=== PATIENT | male | born 1965 | race Caucasian/White ===

== ENCOUNTER 2022-07-21 10:54 | Inpatient (IN) | payer SELFPAY ==
[2022-07-21 12:03] LABS: Hemoglobin 15.3 g/dL (14.0-18.0); Mean Corpuscular Hemoglobin 30.9 pg (27.0-31.0); Mean Corpuscular Volume 93.4 fL (78.0-98.0); Mean Platelet Volume 6.9 fL (7.4-10.4); Platelet Count 272 thou/uL (130-400); RBC Distribution Width 14.3 % (11.5-14.5); Red Blood Cell (RBC) Count 4.96 mill/uL (4.70-6.10); White Blood Cell (WBC) Count 14.6 thou/uL (4.8-10.8)
[2022-07-21 12:20] LABS: Band 11 % (5-11); Lymphocytes 1 % (21-51); MDiff Complete? YES; Monocytes 5 % (0-10); Neutrophil 83 % (42-75); Platelet Morphology Comment Appears Adequate; RBC Morphology Normal
[2022-07-21 12:25] LABS: ALT (SGPT) 17 U/L (8-55); AST (SGOT) 19 U/L (5-34); Albumin 3.9 g/dL (3.5-5.0); Alkaline Phosphatase 121 U/L (40-110); Anion Gap 15 mmol/L (10-20); BUN (Urea Nitrogen) 43 mg/dL (8.4-25.7); Bilirubin, Total 0.7 mg/dL (0.2-1.2); CK (CPK) 66 U/L (30-200); Calc. Creatinine Clearance 0 mL/min (70-130); Calcium 8.9 mg/dL (7.8-10.44); Carbon Dioxide 21 mmol/L (22-29); Chloride 90 mmol/L (98-107); Estimated GFR 27; Globulin 3.9 g/dL (2.4-3.5); Glucose 137 mg/dL (70-105); Lipase 4 U/L (8-78); Magnesium 2.4 mg/dL (1.6-2.6); Potassium 3.1 mmol/L (3.5-5.1); Protein, Total 7.8 g/dL (6.0-8.3); Sodium 123 mmol/L (136-145)
[2022-07-21] MEDS ORDERED: Piperacillin/Tazobactam 4.5 GM VIAL ONE ×2 (14:43→14:56)
[2022-07-21] MEDS ORDERED: Potassium Chloride 20 MEQ/100 ML PREMIX BAG ONE (14:56)
[2022-07-21 16:15] LABS: SARS-CoV-2 NAA Rapid Test Not Detected (NotDetected)
[2022-07-21] MEDS ORDERED: Midazolam HCl 2 mg/2 ml Vial ONE (16:33)
[2022-07-21] MEDS ORDERED: fentaNYL Citrate/PF 100 MCG/2 ML SYRINGE ONE ×2 (16:33→19:44)
[2022-07-21] MEDS ORDERED: Phenylephrine 10 MG/ML VIAL ONE (16:59)
[2022-07-21] MEDS ORDERED: Ondansetron PF 4 MG/2 ML Vial ONE (16:59)
[2022-07-21] MEDS ORDERED: Lidocaine 1% MPF 2 ML VIAL ONE (16:59)
[2022-07-21] MEDS ORDERED: Vecuronium 10 MG VIAL ONE (16:59)
[2022-07-21] MEDS ORDERED: PROPOFOL 200 MG/20 ML VIAL ONE (16:59)
[2022-07-21] MEDS ORDERED: Rocuronium Bromide 10 MG/ML (10ML VIAL) ONE (16:59)
[2022-07-21] MEDS ORDERED: Succinylcholine 200 MG/10 ml SYRINGE FS ONE (16:59)
[2022-07-21] MEDS ORDERED: Bupivacaine/Epinephrine 0.25% 30 ML VIAL ONE (17:17)
[2022-07-21] MEDS ORDERED: SUGAMMADEX SODIUM 200 MG/2 ML VIAL ONE (18:41)
[2022-07-21] MEDS ORDERED: hydrALAZINE 20 MG/ML VIAL SLOW IVP PRN (19:17)
[2022-07-21] MEDS ORDERED: Promethazine HCl 25 MG/ML VIAL IM PRN ×2 (19:17→19:27)
[2022-07-21] MEDS ORDERED: Morphine 4 MG/ML VIAL SLOW IVP PRN (19:17)
[2022-07-21] MEDS ORDERED: Ondansetron PF 4 MG/2 ML Vial IVP PRN (19:17)
[2022-07-21] MEDS ORDERED: Dextrose 50% Abboject 50 ML SYRINGE SLOW IVP PRN (19:17)
[2022-07-21] MEDS ORDERED: Dextrose 5% in Water 1,000 ML IV PRN (19:17)
[2022-07-21] MEDS ORDERED: traMADol HCl 50 MG TAB PO PRN (19:22)
[2022-07-21] MEDS ORDERED: Promethazine HCl 25 MG/ML VIAL IVPB PRN (19:27)
[2022-07-21] MEDS ORDERED: Ondansetron HCl/PF 4 MG/2 ML Vial IVP PRN (19:27)
[2022-07-21] MEDS ORDERED: HYDROmorphone 2 MG/ML VIAL SLOW IVP PRN (19:27)
[2022-07-21 21:29] VITALS: BMI 39.9
[2022-07-21] MEDS: Lactated Ringer's 1,000 ML IV SCH (21:31)
[2022-07-21] MEDS: Acetaminophen 325 MG TAB PO SCH (23:29)
[2022-07-21] MEDS: traMADol HCl 50 MG TAB PO SCH (23:30)
[2022-07-21] MEDS ORDERED: Piperacillin/Tazobactam 3.375 GM in Sodium Chloride 0.9% 100 ML IVPB SCH (23:59)
[2022-07-22] MEDS: Lactated Ringer's 1,000 ML IV SCH ×3 (01:55→17:52)
[2022-07-22] MEDS ORDERED: Piperacillin/Tazobactam 3.375 GM in Sodium Chloride 0.9% 100 ML IVPB SCH (03:00)
[2022-07-22] MEDS: traMADol HCl 50 MG TAB PO SCH ×4 (06:04→23:28)
[2022-07-22] MEDS: Acetaminophen 325 MG TAB PO SCH ×4 (06:05→23:28)
[2022-07-22 06:46] LABS: Band 30 % (5-11); Hemoglobin 12.6 g/dL (14.0-18.0); Lymphocytes 17 % (21-51); MDiff Complete? YES; Mean Corpuscular HGB CONC 32.5 g/dL (32.0-36.0); Mean Corpuscular Hemoglobin 30.7 pg (27.0-31.0); Mean Corpuscular Volume 94.7 fL (78.0-98.0); Mean Platelet Volume 7.1 fL (7.4-10.4); Monocytes 25 % (0-10); Neutrophil 28 % (42-75); Platelet Count 253 thou/uL (130-400); RBC Distribution Width 14.5 % (11.5-14.5); Red Blood Cell (RBC) Count 4.11 mill/uL (4.70-6.10); White Blood Cell (WBC) Count 3.9 thou/uL (4.8-10.8)
[2022-07-22 06:54] LABS: Anion Gap 15 mmol/L (10-20); BUN (Urea Nitrogen) 44 mg/dL (8.4-25.7); Calc. Creatinine Clearance 56 mL/min (70-130); Calcium 7.5 mg/dL (7.8-10.44); Carbon Dioxide 16 mmol/L (22-29); Chloride 101 mmol/L (98-107); Estimated GFR 27; Glucose 145 mg/dL (70-105); Potassium 3.8 mmol/L (3.5-5.1); Sodium 128 mmol/L (136-145)
[2022-07-22 07:04] LABS: Phosphorus 2.5 mg/dL (2.3-4.7)
[2022-07-22] MEDS: Saccharomyces boulardii 250 MG CAP PO SCH (08:24)
[2022-07-22] MEDS: Famotidine 20 MG TAB PO SCH (08:24)
[2022-07-22] MEDS: Famotidine/PF 20 mg/2ml Vial SLOW IVP SCH (08:28)
[2022-07-22] MEDS: Piperacillin/Tazobactam 3.375 GM in Sodium Chloride 0.9% 100 ML IVPB SCH ×2 (10:47→17:52)
[2022-07-22] MEDS: Mirtazapine 15 MG TAB PO SCH (21:01)
[2022-07-22] MEDS: Rosuvastatin 20 MG TAB PO SCH (21:01)
[2022-07-23] MEDS: Piperacillin/Tazobactam 3.375 GM in Sodium Chloride 0.9% 100 ML IVPB SCH ×3 (02:49→17:01)
[2022-07-23] MEDS: Lactated Ringer's 1,000 ML IV SCH ×3 (02:50→15:20)
[2022-07-23] MEDS: traMADol HCl 50 MG TAB PO SCH ×4 (06:11→23:57)
[2022-07-23] MEDS: Acetaminophen 325 MG TAB PO SCH ×4 (06:11→23:57)
[2022-07-23] MEDS ORDERED: Non-Formulary Item 1 EACH (Bupropion Hcl [Bupropion Xl] 300 MG Tab.Er.24h) PO SCH (09:00)
[2022-07-23] MEDS ORDERED: Bupropion 150 MG XL TAB PO SCH ×2 (09:00→09:45)
[2022-07-23] MEDS: Saccharomyces boulardii 250 MG CAP PO SCH (09:21)
[2022-07-23] MEDS: Famotidine 20 MG TAB PO SCH (09:21)
[2022-07-23] MEDS: Famotidine/PF 20 mg/2ml Vial SLOW IVP SCH (09:22)
[2022-07-23] MEDS: Rosuvastatin 20 MG TAB PO SCH (20:02)
[2022-07-23] MEDS: Mirtazapine 15 MG TAB PO SCH (20:02)
[2022-07-24] MEDS: Piperacillin/Tazobactam 3.375 GM in Sodium Chloride 0.9% 100 ML IVPB SCH ×3 (01:55→18:57)
[2022-07-24] MEDS: Lactated Ringer's 1,000 ML IV SCH (03:33)
[2022-07-24] MEDS: traMADol HCl 50 MG TAB PO SCH ×3 (05:08→18:57)
[2022-07-24] MEDS: Acetaminophen 325 MG TAB PO SCH ×3 (05:08→18:58)
[2022-07-24] MEDS ORDERED: Bupropion 150 MG XL TAB PO SCH (09:00)
[2022-07-24] MEDS: Saccharomyces boulardii 250 MG CAP PO SCH (09:22)
[2022-07-24] MEDS: Famotidine 20 MG TAB PO SCH ×2 (09:22→20:48)
[2022-07-24 09:48] LABS: Hemoglobin 12.1 g/dL (14.0-18.0); Mean Corpuscular HGB CONC 32.8 g/dL (32.0-36.0); Mean Corpuscular Hemoglobin 30.7 pg (27.0-31.0); Mean Corpuscular Volume 93.6 fL (78.0-98.0); Mean Platelet Volume 6.9 fL (7.4-10.4); Platelet Count 253 thou/uL (130-400); RBC Distribution Width 14.7 % (11.5-14.5); Red Blood Cell (RBC) Count 3.95 mill/uL (4.70-6.10); White Blood Cell (WBC) Count 7.2 thou/uL (4.8-10.8)
[2022-07-24 09:59] LABS: Anion Gap 14 mmol/L (10-20); BUN (Urea Nitrogen) 25 mg/dL (8.4-25.7); Calc. Creatinine Clearance 104 mL/min (70-130); Carbon Dioxide 23 mmol/L (22-29); Chloride 100 mmol/L (98-107); Estimated GFR 57; Glucose 97 mg/dL (70-105); Magnesium 2.1 mg/dL (1.6-2.6); Potassium 3.3 mmol/L (3.5-5.1); Sodium 134 mmol/L (136-145)
[2022-07-24 10:06] LABS: Band 16 % (5-11); Lymphocytes 13 % (21-51); MDiff Complete? YES; Monocytes 10 % (0-10); Neutrophil 61 % (42-75)
[2022-07-24 10:12] LABS: Phosphorus 1.5 mg/dL (2.3-4.7)
[2022-07-24] MEDS: K-Phos Neutral 250 MG TAB PO SCH (15:55)
[2022-07-24] MEDS: Mirtazapine 15 MG TAB PO SCH (20:48)
[2022-07-24] MEDS: Rosuvastatin 20 MG TAB PO SCH (20:49)
[2022-07-24] MEDS: NS 0.9% w/ 20 MEQ KCL 1,000 ML IV SCH (21:33)
[2022-07-25] MEDS: Acetaminophen 325 MG TAB PO SCH ×4 (00:21→18:45)
[2022-07-25] MEDS: traMADol HCl 50 MG TAB PO SCH ×4 (00:22→18:53)
[2022-07-25] MEDS: Piperacillin/Tazobactam 3.375 GM in Sodium Chloride 0.9% 100 ML IVPB SCH ×4 (02:00→20:39)
[2022-07-25] MEDS: NS 0.9% w/ 20 MEQ KCL 1,000 ML IV SCH ×3 (05:05→20:39)
[2022-07-25 05:50] LABS: Anion Gap 15 mmol/L (10-20); BUN (Urea Nitrogen) 20 mg/dL (8.4-25.7); Calc. Creatinine Clearance 127 mL/min (70-130); Calcium 7.5 mg/dL (7.8-10.44); Carbon Dioxide 21 mmol/L (22-29); Chloride 104 mmol/L (98-107); Estimated GFR 73; Glucose 83 mg/dL (70-105); Magnesium 2.1 mg/dL (1.6-2.6); Phosphorus 1.9 mg/dL (2.3-4.7); Potassium 3.6 mmol/L (3.5-5.1); Sodium 136 mmol/L (136-145)
[2022-07-25 06:15] LABS: Band 4 % (5-11); Eosinophils 1 % (0-10); Hemoglobin 10.7 g/dL (14.0-18.0); Hypochromia SLIGHT = 6-15 cells (100X) (0-5/hpf); Lymphocytes 9 % (21-51); MDiff Complete? YES; Mean Corpuscular Hemoglobin 30.5 pg (27.0-31.0); Mean Corpuscular Volume 95.1 fL (78.0-98.0); Mean Platelet Volume 6.8 fL (7.4-10.4); Monocytes 15 % (0-10); Neutrophil 71 % (42-75); Platelet Count 235 thou/uL (130-400); Platelet Morphology Comment Appears Adequate; RBC Distribution Width 14.5 % (11.5-14.5); Red Blood Cell (RBC) Count 3.52 mill/uL (4.70-6.10); White Blood Cell (WBC) Count 7.2 thou/uL (4.8-10.8)
[2022-07-25] MEDS ORDERED: SODIUM CHLORIDE 0.9% IVPB SCH (06:15)
[2022-07-25] MEDS ORDERED: SODIUM PHOSPHATE IVPB SCH (06:15)
[2022-07-25] MEDS: Saccharomyces boulardii 250 MG CAP PO SCH (09:32)
[2022-07-25] MEDS: Bupropion 150 MG XL TAB PO SCH (09:32)
[2022-07-25] MEDS: Famotidine 20 MG TAB PO SCH ×2 (09:33→20:40)
[2022-07-25] MEDS: K-Phos Neutral 250 MG TAB PO SCH (13:37)
[2022-07-25] MEDS: Mirtazapine 15 MG TAB PO SCH (20:40)
[2022-07-25] MEDS: Rosuvastatin 20 MG TAB PO SCH (20:40)
[2022-07-25] MEDS: Melatonin 3 MG TAB PO PRN (22:17)
[2022-07-26] MEDS: traMADol HCl 50 MG TAB PO SCH ×4 (00:50→22:56)
[2022-07-26] MEDS: Acetaminophen 325 MG TAB PO SCH ×5 (00:50→23:39)
[2022-07-26] MEDS: Piperacillin/Tazobactam 3.375 GM in Sodium Chloride 0.9% 100 ML IVPB SCH ×3 (04:22→20:37)
[2022-07-26] MEDS: NS 0.9% w/ 20 MEQ KCL 1,000 ML IV SCH ×2 (06:00→23:39)
[2022-07-26] MEDS: Bupropion 150 MG XL TAB PO SCH (08:38)
[2022-07-26] MEDS: Famotidine 20 MG TAB PO SCH ×2 (08:38→20:36)
[2022-07-26] MEDS: Saccharomyces boulardii 250 MG CAP PO SCH (08:39)
[2022-07-26] MEDS: Mirtazapine 15 MG TAB PO SCH (20:36)
[2022-07-26] MEDS: Melatonin 3 MG TAB PO PRN (20:36)
[2022-07-26] MEDS: Rosuvastatin 20 MG TAB PO SCH (20:36)
[2022-07-27] MEDS: Piperacillin/Tazobactam 3.375 GM in Sodium Chloride 0.9% 100 ML IVPB SCH ×3 (04:29→20:08)
[2022-07-27] MEDS: traMADol HCl 50 MG TAB PO SCH ×4 (04:33→22:35)
[2022-07-27] MEDS: Acetaminophen 325 MG TAB PO SCH ×3 (04:37→18:44)
[2022-07-27] MEDS ORDERED: MD-Gastroview 120 ML BOT ONE (09:08)
[2022-07-27] MEDS: Saccharomyces boulardii 250 MG CAP PO SCH (09:21)
[2022-07-27] MEDS: Famotidine 20 MG TAB PO SCH ×2 (09:22→20:07)
[2022-07-27] MEDS: Heparin 5,000 UNITS/ML VIAL SC SCH ×3 (09:22→20:08)
[2022-07-27] MEDS: Bupropion 150 MG XL TAB PO SCH (09:25)
[2022-07-27] MEDS ORDERED: Acetaminophen 325 MG TAB PO PRN (19:00)
[2022-07-27] MEDS: Rosuvastatin 20 MG TAB PO SCH (20:07)
[2022-07-27] MEDS: Mirtazapine 15 MG TAB PO SCH (20:08)
[2022-07-28] MEDS: traMADol HCl 50 MG TAB PO SCH ×3 (05:17→18:11)
[2022-07-28 06:10] LABS: #Basophils 0.1 thou/uL (0.0-0.2); #Eosinphils 0.4 thou/uL (0.0-0.7); #Lymphocytes 1.1 thou/uL (1.20-3.40); #Neutrophils 7.1 thou/uL (1.40-6.50); %Basophils 0.6 % (0.0-1.0); %Eosinophils 3.8 % (0.0-10.0); %Lymphocytes 11.9 % (21.0-51.0); %Monocytes 10.3 % (0.0-10.0); %Neutrophils 73.5 % (42.0-75.0); Hemoglobin 10.5 g/dL (14.0-18.0); Mean Corpuscular HGB CONC 27.8 g/dL (32.0-36.0); Mean Corpuscular Hemoglobin 26.9 pg (27.0-31.0); Mean Corpuscular Volume 96.9 fL (78.0-98.0); Mean Platelet Volume 7.9 fL (7.4-10.4); Platelet Count 321 thou/uL (130-400); RBC Distribution Width 15.1 % (11.5-14.5); Red Blood Cell (RBC) Count 3.91 mill/uL (4.70-6.10); White Blood Cell (WBC) Count 9.6 thou/uL (4.8-10.8)
[2022-07-28 06:23] LABS: Anion Gap 17 mmol/L (10-20); BUN (Urea Nitrogen) 13 mg/dL (8.4-25.7); Calc. Creatinine Clearance 143 mL/min (70-130); Calcium 7.7 mg/dL (7.8-10.44); Carbon Dioxide 17 mmol/L (22-29); Chloride 107 mmol/L (98-107); Estimated GFR 85; Glucose 87 mg/dL (70-105); Magnesium 1.7 mg/dL (1.6-2.6); Phosphorus 2.2 mg/dL (2.3-4.7); Potassium 4.3 mmol/L (3.5-5.1); Sodium 137 mmol/L (136-145)
[2022-07-28] MEDS ORDERED: Piperacillin/Tazobactam 3.375 GM in Sodium Chloride 0.9% 100 ML IVPB SCH (08:30)
[2022-07-28] MEDS ORDERED: Saccharomyces boulardii 250 MG CAP PO SCH (09:00)
[2022-07-28] MEDS ORDERED: Sodium Phosphate 30 MMOL in Sodium Chloride 0.9% 250 ML 250 ML IVPB SCH (09:00)
[2022-07-28] MEDS: Heparin 5,000 UNITS/ML VIAL SC SCH ×3 (09:18→20:31)
[2022-07-28] MEDS: Bupropion 150 MG XL TAB PO SCH (09:18)
[2022-07-28] MEDS: Saccharomyces boulardii 250 MG CAP PO SCH (09:18)
[2022-07-28] MEDS: Famotidine 20 MG TAB PO SCH ×2 (09:18→20:30)
[2022-07-28] MEDS: Piperacillin/Tazobactam 3.375 GM in Sodium Chloride 0.9% 100 ML IVPB SCH ×2 (15:52→20:30)
[2022-07-28] MEDS: Mirtazapine 15 MG TAB PO SCH (20:31)
[2022-07-28] MEDS: Rosuvastatin 20 MG TAB PO SCH (20:31)
[2022-07-29] MEDS: traMADol HCl 50 MG TAB PO SCH ×3 (00:22→11:47)
[2022-07-29] MEDS: Piperacillin/Tazobactam 3.375 GM in Sodium Chloride 0.9% 100 ML IVPB SCH ×2 (04:05→11:47)
[2022-07-29] MEDS: Heparin 5,000 UNITS/ML VIAL SC SCH (10:05)
[2022-07-29] MEDS: Famotidine 20 MG TAB PO SCH (10:06)
[2022-07-29] MEDS: Saccharomyces boulardii 250 MG CAP PO SCH (10:06)
[2022-07-29] MEDS: Bupropion 150 MG XL TAB PO SCH (10:06)
[2022-07-29 12:00] VITALS: BP 154/92; TEMP 98.1
== END 2022-07-29 13:15 | disposition home or self-care (01) | DRG 853 ==
LOC: ERS 10:54 → SDC 15:41 → SURG A 20:25
PROVIDERS: ADMIT Surgery; ATTEND Surgery
PROC: 0DTJ4ZZ Resection of Appendix, Percutaneous Endoscopic Approach (ICD-10-PCS; principal; 2022-07-21)
DX: A41.9 Sepsis, unspecified organism (principal); K35.33 Acute appendicitis with perforation, localized peritonitis, and gangrene, with abscess; E87.1 Hypo-osmolality and hyponatremia; N17.9 Acute kidney failure, unspecified; K56.7 Ileus, unspecified; E66.01 Morbid (severe) obesity due to excess calories; F32.A Depression, unspecified; I12.9 Hypertensive chronic kidney disease with stage 1 through stage 4 chronic kidney disease, or unspecified chronic kidney disease; N18.30 Chronic kidney disease, stage 3 unspecified; E87.6 Hypokalemia; E83.39 Other disorders of phosphorus metabolism; Z20.822 Contact with and (suspected) exposure to COVID-19; F17.210 Nicotine dependence, cigarettes, uncomplicated; Z68.39 Body mass index [BMI] 39.0-39.9, adult
CPT/HCPCS: 36415; 74019; 74176; 74250; 80048; 80053; 82550; 83605; 83690; 83735; 84100; 84145; 85025; 86140; 87040; 87811; 88304; 96361; 96374; 96375; J1644; J2250; J2370; J2405; J2543; J2704; J3480; J3490; J7050; J7120; J7620; Q9963; U0002